=== PATIENT | born 1995 | race Two or more races ===

== ENCOUNTER 2023-06-13 21:18 | Emergency (ER) | payer SELFPAY ==
[2023-06-13] MEDS ORDERED: BACITRACIN ZINC OINT UDPKT TOP ONE ×2 (22:00→22:30)
[2023-06-13] MEDS ORDERED: LIDOCAINE HCL/PF 1% 10 MG/ML 5ML VIAL INFIL ONE (22:00)
[2023-06-13] MEDS ORDERED: TETANUS, DIPHTHERIA, PERTUSSIS VAC/PF 0.5ML (>10YR OLD) IM ONE (22:00)
[2023-06-13 22:04] VITALS: BP 140/84; PULSE 101; RESP 15; TEMP 98.6
[2023-06-13] MEDS ORDERED: BO1 TP (22:24)
[2023-06-13] MEDS ORDERED: LIDOCAINE 5% PATCH TOP SCH (22:30)
[2023-06-13] MEDS ORDERED: KETOROLAC 30MG/ML VIAL IM ONE (22:30)
== END 2023-06-13 22:35 | disposition home or self-care (01) ==
LOC: ER 21:18
DX: S60.459A Superficial foreign body of unspecified finger, initial encounter (principal); W26.8XXA Contact with other sharp object(s), not elsewhere classified, initial encounter; Y93.89 Activity, other specified; Y92.89 Other specified places as the place of occurrence of the external cause; Y99.8 Other external cause status
CPT/HCPCS: 20520; 99284; J3490